=== PATIENT | male | born 1960 | race Hispanic/Latino ===

== ENCOUNTER 2021-09-06 07:18 | Outpatient (CLI) | payer OTHER, SELFPAY ==
--- NOTE | ~2021-09-06 | US_ITS ---
EXAMINATION: US abdomen complete DATE: 09/06/2021 07:54 INDICATION: Right upper quadrant abdominal pain. TECHNIQUE: Multiple grayscale and Doppler ultrasound images of the abdomen were obtained. COMPARISON: None FINDINGS: The visualized portions of the head and body of the pancreas are normal. The liver is keegan l without focal lesion. There is normal flow in main portal vein. The gallbladder is normal in size. No gallstones or sonographic Mcclure sign. Gallbladder wall thickening is noted. The kidneys are keegan l in size. Abdominal aorta is normal in caliber. Inferior vena cava is normal. The spleen is normal i n size. IMPRESSION: 1. Gallbladder wall thickening, which may be seen with chronic liver disease, chronic cholecystitis, or interstitial edema. Reviewed, dictated and finalized at location A. IMPRESSION: 1. Gallbladder wall thickening, which may be seen with chronic liver disease, c hronic cholecystitis, or interstitial edema.
== END 2021-09-06 07:19 | disposition home or self-care (01) ==
PROVIDERS: PCP Internal Medicine; Visit Provider Internal Medicine Gastroenterology
DX: R10.11 Right upper quadrant pain (principal)
CPT/HCPCS: 76700

== ENCOUNTER 2022-01-24 07:32 | Outpatient (CLI) | payer MEDICAID, SELFPAY ==
--- NOTE | ~2022-01-24 | NM_ITS ---
EXAMINATION: NM hepatobiliary wo pharm DATE: 01/24/2022 11:03 CDT INDICATION: Right upper quadrant pain COMPARISON: None. TECHNIQUE: 5.1 mCi Tc-99m mebrofenin (Choletec) was administered intravenously. Scintigraphic images of the abdomen were obtained for one hour. At the 1 hour time point, the patient drank 8 oz Ensure, and imaging was continued for 60 minutes. Gallbladder ejection fraction was calculated by the technol ogist. FINDINGS: There is normal clearance of radiotracer from the blood pool. There is homogeneous tracer u ptake by the liver. Activity progresses to the bowel and gallbladder. The gallbladder ejection fract ion is 34%. Note that with this technique, normal GBEF >= 33%. IMPRESSION: 1. Normal hepatobiliary scan. Reviewed, dictated and finalized at location B.
== END 2022-01-24 07:33 | disposition home or self-care (01) ==
LOC: ANHIMG 07:37
PROVIDERS: PCP Internal Medicine; Visit Provider Nurse Practitioner Family
DX: R10.11 Right upper quadrant pain (principal); R93.2 Abnormal findings on diagnostic imaging of liver and biliary tract
CPT/HCPCS: 78226; A9537

== ENCOUNTER 2022-03-04 00:27 | Day surgery (SDC) | payer MEDICAID, SELFPAY ==
[2022-02-21 12:43] VITALS: BMI 26.5
[2022-03-04 11:13] VITALS: BP 156/85; PULSE 80; RESP 18; TEMP 35.9; O2SAT 100
[2022-03-04] MEDS: LACTATED RINGERS 1,000 ML 150 ML IV CONT (11:27)
--- NOTE | 2022-03-04 11:32 | PM.HPGS ---
History of Present Illness History of Present Illness Consent: Risks, benefits, and alternatives have been discussed and questions answered. Patient agrees to proceed with procedure. Chief complaint: neoplasm,hx colon polyps,hemorrhoids, RQUP, GERD Narrative: Zi Alcantar is a 61 year old male here for egd, colonoscopy and irc. He had colon polyp 5 years ago, also gerd- last time ? H pylori but unsure, also hemorrhoids- interested on treatment Review of Systems Constitutional: Constitutional: Denies headache(s) and Denies weakness Eyes: Eyes: Denies blurry vision ENT: Reports Normal hearing present, Denies headache(s) and Denies neck pain Cardiovascular: Cardiovascular: Denies chest pain and Denies dyspnea Respiratory: Respiratory: Denies dyspnea Gastrointestinal: Gastrointestinal: Reports no additional gastrointestinal complaints Genitourinary: Genitourinary: Denies dysuria Musculoskeletal: Musculoskeletal: Denies neck pain Integumentary/Breasts: Skin/Breast: Denies dry skin Neurologic: Reports Normal hearing present, Denies headache(s) and Denies weakness Psychiatric: Psychiatric: Denies anxiety Endocrine: Endocrine: Denies change in body appearance Hematologic/Lymphatic: Hematologic/Lymphatic: Denies easy bleeding Allergic/Immunologic: Allergic/Immunologic: Denies urticaria PMFSH Past Medical History Medical History (Updated 01/13/22 @ 09:58 by Michael Hu MD) Abnormal gallbladder ultrasound Anxiety Colon polyp Dysphagia GERD (gastroesophageal reflux disease) Hemorrhoid Hypertension RUQ pain Ulcer Social History Social History Smoking status: Former smoker Tobacco type: cigarettes Alcohol intake: never Substance use: never Substance use type: does not use Living arrangements: with family Spiritual care concerns: No Meds Home Medications and Allergies Home Medications Medication Instructions Recorded Confirmed Type lisinopril 20 mg tablet 20 mg PO DAILY 08/26/21 02/21/22 History pantoprazole 40 mg tablet,delayed 40 mg PO QAM 08/26/21 02/21/22 History release sertraline 100 mg tablet 100 mg PO DAILY 08/26/21 02/21/22 History trazodone 50 mg tablet 50 mg PO QHS PRN Sleep 08/26/21 02/21/22 History sucralfate 1 gram tablet 1 g PO TID #90 tabs 01/13/22 02/21/22 Rx Allergies Allergy/AdvReac Type Severity Reaction Status Date / Time No Known Allergies Allergy Verified 03/04/22 11:11 Vital Signs Vital Signs - 24 hr 03/04/22 11:13 Temperature 96.7 F L Pulse Rate 80 Respiratory Rate 18 Blood Pressure 156/85 H Pulse Oximetry 100 Oxygen Delivery Room Air Exam Const: General: comfortable and no acute distress HENMT: General nose exam: Normal nares present Eyes: General: appearance normal, both eyes and all related structures Neck: Neck: no JVD Resp: Auscultation: clear to auscultation bilaterally Cardio: Rate: regular rate Rhythm: regular rhythm GI: Inspection: non-distended GI Palp: Yes Soft to palpation Skin: General skin exam: normal color Neuro: General: gait normal Speech: normal speech Extrem: General: normal to inspection Psych: Mental Status: mental status grossly normal Assessment and Plan Assessment and plan (1) Colon polyp: Code(s): K63.5 - Polyp of colon Status: Acute Assessment and Plan: colonoscopy (2) Hemorrhoid: Code(s): K64.9 - Unspecified hemorrhoids Status: Acute Assessment and Plan: IRC of internal hemorrhoids (3) GERD (gastroesophageal reflux disease): Code(s): K21.9 - Gastro-esophageal reflux disease without esophagitis Status: Acute Assessment and Plan: egd with bx on ppi
--- NOTE | 2022-03-04 11:43 | P.PNAN_ITS ---
Anes - Initial Pre Proc Eval Procedure: Operation Date: 03/04/22 12:30 Proposed Procedures p Esophagogastroduodenoscopy & Screening Colonoscopy - Michael Barry MD [facility] Hemorrhoid Treatment - Michael Hu MD Date/Time: 03/04/22 11:43 Surgeon: Michael Hu MD Pre Op Diagnosis: neoplasm,hx colon polyps,hemorrhoids, RQUP, GERD Patient Data Age: 61 Gender: M Height: 1.78 m Weight: 86.3 kg Last Vital Signs Temp 96.7 F L 03/04/22 11:13 Pulse 80 03/04/22 11:13 Resp 18 03/04/22 11:13 BP 156/85 H 03/04/22 11:13 Pulse Ox 100 03/04/22 11:13 O2 Del Method Room Air 03/04/22 11:13 Allergies Allergy/AdvReac Type Severity Reaction Status Date / Time No Known Allergies Allergy Verified 03/04/22 11:11 Home Medications Medication Instructions Recorded Confirmed Type lisinopril 20 mg tablet 20 mg PO DAILY 08/26/21 02/21/22 History pantoprazole 40 mg tablet,delayed 40 mg PO QAM 08/26/21 02/21/22 History release sertraline 100 mg tablet 100 mg PO DAILY 08/26/21 02/21/22 History trazodone 50 mg tablet 50 mg PO QHS PRN Sleep 08/26/21 02/21/22 History sucralfate 1 gram tablet 1 g PO TID #90 tabs 01/13/22 02/21/22 Rx Patient hx anesthesia problems: none Family hx anesthesia problems: none Results Review: All pre-operative results and documents have been reviewed as part of the pre- operative evaluation. [facility] Past Medical History Medical History (Updated 01/13/22 @ 09:58 by Michael Hu MD) Abnormal gallbladder ultrasound Anxiety Colon polyp Dysphagia GERD (gastroesophageal reflux disease) Hemorrhoid Hypertension RUQ pain Ulcer Social History Social History Smoking status: Former smoker Tobacco type: cigarettes Alcohol intake: never Substance use: never Substance use type: does not use Living arrangements: with family Spiritual care concerns: No Anes - Eval Final PreProcedure Day of Procedure 03/04/22 11:43 Patient weight: normal Heart: regular rate and rhythm Lungs: clear to auscultation Airway: Mallampati scale class II Neurological: alert and oriented Last oral intake: >/= 8 hours ASA classification: II Emergent: no Anesthetic plan: proceed Anesthesia type and monitoring: general GIVS and standard monitoring Results Review: All pre-operative results and documents have been reviewed as part of the pre- operative evaluation. Informed Consent: The patient's anesthetic plan and its attendant risks and benefits were discussed with the patient/family/POA. Questions were solicited and answers provided to the satisfaction of the patient/family/POA.
--- NOTE | 2022-03-04 11:48 | SUR.OPER ---
EGD: [id number] COLON: [id number]
[2022-03-04 12:01] VITALS: BP 91/58; PULSE 80; RESP 14; O2SAT 100
--- NOTE | 2022-03-04 12:01 | W.PM.PROC2 ---
Procedure Note - Detailed Date of Procedure 03/04/22 Pre-op Diagnosis neoplasm,hx colon polyps,hemorrhoids, RQUP, GERD Post-op Diagnosis Same Procedure Performed IRC of internal hemorrhoids Surgeon Michael Hu MD Description of Procedure rectal exam showed grade II internal hemorrhoids, no bleeding, no fissure. Then anoscope was introduced and IRC probe advanced, hemorrhoids treated x6 1.5 seconds each time.
[2022-03-04 12:11] VITALS: BP 121/76; PULSE 78; RESP 20; O2SAT 100
[2022-03-04 12:21] VITALS: BP 116/81; PULSE 78; RESP 20; O2SAT 100
== END 2022-03-04 12:35 | disposition home or self-care (01) ==
PROVIDERS: PCP Internal Medicine; Visit Provider Internal Medicine Gastroenterology
PROC: 0DJ08ZZ Inspection of Upper Intestinal Tract, Via Natural or Artificial Opening Endoscopic (ICD-10-PCS; CPT 43235; principal; 2022-03-04 12:30)
PROC: (CPT 46930; 2022-03-04 12:30)
DX: Z12.11 Encounter for screening for malignant neoplasm of colon (principal); Z86.010 Personal history of colon polyps; K64.1 Second degree hemorrhoids; K29.50 Unspecified chronic gastritis without bleeding; K21.9 Gastro-esophageal reflux disease without esophagitis; R10.11 Right upper quadrant pain; F41.9 Anxiety disorder, unspecified; I10 Essential (primary) hypertension; Z87.891 Personal history of nicotine dependence; R13.10 Dysphagia, unspecified
CPT/HCPCS: 45378; 43239; 46930; 87081; 88305; J2704; J7120

== ENCOUNTER 2022-05-17 01:16 | Day surgery (SDC) | payer MEDICAID, SELFPAY ==
[2022-05-11 12:32] VITALS: BMI 27.6
--- NOTE | 2022-05-17 13:11 | PM.HPGS ---
History of Present Illness History of Present Illness Consent: Risks, benefits, and alternatives have been discussed and questions answered. Patient agrees to proceed with procedure. Chief complaint: hemorrhoids Narrative: Zi Alcantar is a 61 year old male with hemorrhoids treated with irc previously, lately with discomfort again Review of Systems Constitutional: Constitutional: Denies headache(s) and Denies weakness Eyes: Eyes: Denies blurry vision ENT: Reports Normal hearing present, Denies headache(s) and Denies neck pain Cardiovascular: Cardiovascular: Denies chest pain and Denies dyspnea Respiratory: Respiratory: Denies dyspnea Gastrointestinal: Gastrointestinal: Reports no additional gastrointestinal complaints Genitourinary: Genitourinary: Denies dysuria Musculoskeletal: Musculoskeletal: Denies neck pain Integumentary/Breasts: Skin/Breast: Denies dry skin Neurologic: Reports Normal hearing present, Denies headache(s) and Denies weakness Psychiatric: Psychiatric: Denies anxiety Endocrine: Endocrine: Denies change in body appearance Hematologic/Lymphatic: Hematologic/Lymphatic: Denies easy bleeding Allergic/Immunologic: Allergic/Immunologic: Denies urticaria PMF Past Medical History Medical History Abnormal gallbladder ultrasound Anxiety Colon polyp Dysphagia GERD (gastroesophageal reflux disease) Hemorrhoid Hypertension RUQ pain Ulcer Social History Social History Years smoked: 5 Smoking status: Former smoker Tobacco type: cigarettes Alcohol intake: never Substance use: never Substance use type: does not use Living arrangements: with family Spiritual care concerns: No Meds Home Medications and Allergies Home Medications Medication Instructions Recorded Confirmed Type lisinopril 20 mg tablet 20 mg PO DAILY 08/26/21 05/11/22 History pantoprazole 40 mg tablet,delayed 40 mg PO QAM 08/26/21 05/11/22 History release sertraline 100 mg tablet 100 mg PO DAILY 08/26/21 05/11/22 History trazodone 50 mg tablet 50 mg PO QHS PRN Sleep 08/26/21 05/11/22 History propranolol 20 mg tablet 20 mg PO TID 05/11/22 05/11/22 History Allergies Allergy/AdvReac Type Severity Reaction Status Date / Time No Known Allergies Allergy Verified 05/11/22 12:34 Exam Const: General: comfortable and no acute distress HENMT: Face/Nose/Sinus: Normal nares present Eyes: General: appearance normal, both eyes and all related structures Neck: Neck: no JVD Resp: Auscultation: clear to auscultation bilaterally Cardio: Rate: regular rate Rhythm: regular rhythm GI: Inspection: non-distended GI Palp: Yes Soft to palpation Skin: General skin exam: normal color Neuro: General: gait normal Speech: normal speech Extrem: General: normal to inspection Psych: Mental Status: mental status grossly normal Assessment and Plan Assessment and plan (1) Hemorrhoid: Code(s): K64.9 - Unspecified hemorrhoids Status: Acute Assessment and Plan: will treat again with irc
--- NOTE | 2022-05-17 13:12 | W.PM.PROC2 ---
Procedure Note - Detailed Date of Procedure 05/17/22 Pre-op Diagnosis hemorrhoids Post-op Diagnosis Same Procedure Performed irc of internal hemorrhoids Surgeon Michael Hu MD Anesthesia None Description of Procedure I introduced and found small internal hemorrhoid, no fissure, no bleeding. Then advanced IRC probe and hemorrhoid treated for 1.5 seconds x5, no complications
== END 2022-05-17 13:15 | disposition home or self-care (01) ==
PROVIDERS: PCP Internal Medicine; Visit Provider Internal Medicine Gastroenterology
PROC: (CPT 46930; principal; 2022-05-17 13:15)
DX: K64.8 Other hemorrhoids (principal); I10 Essential (primary) hypertension; K21.9 Gastro-esophageal reflux disease without esophagitis; F41.9 Anxiety disorder, unspecified
CPT/HCPCS: 46930

== ENCOUNTER 2022-09-27 09:34 | Outpatient (CLI) | payer MEDICAID, SELFPAY ==
--- NOTE | ~2022-09-27 | CT_ITS ---
CT of the Abdomen and Pelvis: Indication: Abdominal pain Technique: 2.5 mm axial scans were obtained through the abdomen and pelvis following intravenous adm inistration of 100 cc of Omnipaque 350. Dose reduction technique was used on this scan by utilizing a utomated exposure control and iterative reconstruction technique. The dose-length product (DLP) was 4 12.03 mGy-cm. Findings: Scans through the lung bases are unremarkable. The liver, spleen, pancreas, gallbladder, adrenals and kidneys are within normal limits. No evidence of aortic aneurysm. No lymphadenopathy. No bowel obstruction or bowel wall thickening. There is no evidence to suggest acute appendicitis. Images through the pelvis were performed. Urinary bladder unremarkable. Prostate gland is mildly enla rged. No ascites. Impression: No significant abnormalities seen. Reviewed, dictated and finalized at [facility]. Impression: No significant abnormalities seen.
[2022-09-27 09:53] LABS: Estimated Glomerular Filt Rate > 60
== END 2022-09-27 09:35 | disposition home or self-care (01) ==
PROVIDERS: PCP Physician Assistant; Visit Provider Surgery
DX: R10.11 Right upper quadrant pain (principal)
CPT/HCPCS: 74177; Q9967

== ENCOUNTER 2023-01-23 12:46 | Outpatient (CLI) | payer MEDICAID, SELFPAY ==
--- NOTE | 2023-01-23 13:59 | ECG_ITS ---
Measurements Intervals [place] Rate: 61 P: 53 OR: 184 QRS: 26 QRSD: 88 T: 42 QT: 387 QTc: 392 Interpretive Statements SINUS RHYTHM CANNOT RULE OUT PREVIOUS sEPTAL MYOCARDIAL INFARCTION NO PREVIOUS ECG AVAILABLE FOR COMPARISON Electronically Signed On 01-23-2023 17:15:03 CDT by Reggie Murray M.D.
[2023-01-23 14:33] LABS: Alanine Aminotransferase 36 U/L (6-50); Albumin Level 4.4 g/dL (3.5-5.1); Alkaline Phosphatase 66 U/L (38-126); Amylase 98 U/L (30-110); Aspartate Amino Transferase 35 U/L (17-59); Bilirubin,Total 0.3 mg/dL (0.2-1.3); Lipase 88 U/L (23-300)
== END 2023-01-23 12:47 | disposition home or self-care (01) ==
LOC: ANHSURGERY 12:51
PROVIDERS: PCP Physician Assistant; Visit Provider Surgery
DX: K81.1 Chronic cholecystitis (principal); I10 Essential (primary) hypertension; Z01.818 Encounter for other preprocedural examination
CPT/HCPCS: 36415; 80076; 82150; 83690; 86850; 86900; 86901; 93005

== ENCOUNTER 2023-01-24 04:20 | Day surgery (SDC) | payer MEDICAID, SELFPAY ==
--- NOTE | 2023-01-23 11:50 | PC.NURSE ---
Report to the Outpatient Waiting Room, entrance under the green pavilion located off [facility], at time _1200_ on date _01/24/23_. Planned Procedure Time: _2PM_. Time changes happen often and if your time is changed the preop area will call you the afternoon before. - You and your visitor will be asked to self-screen and do not enter if you have any COVID symptoms. - A mask is optional within the hospital at this time. Patients may have clear liquids (water, carbonated beverages, clear teas, apple juice) until 3 hours prior to surgery (1100 AM) with a maximum of 20 ounces. - No food from midnight until time of surgery Take the following medications with a SIP of water the morning of surgery: _BUSPIRONE, PROPRANOLOL, SERTRALINE_ DO NOT STOP ANY OF YOUR OTHER PRESCRIPTION MEDICATIONS PRIOR TO SURGERY ?EXCEPT THE FOLLOWING Medications to discontinue per physician ____NONE , Date to take last dose Please no make-up, nail kazakh, hairspray, perfume, deodorant, or body powder the day of surgery. No jewelry (including any body piercings) or valuables the day of surgery, leave them at home. Please take a shower or bath the night before, or the morning of, surgery with an antibacterial soap. Wear comfortable, loose fitting clothing. - Jewelry must be removed prior to entering the operating room. Rings and piercings that are not removed may be cut off. - The hospital will not accept responsibility for valuables. - Please leave all valuables, including medications, at home the day of surgery. If you are going home after surgery, a licensed forklift driver must drive you home. - NO public transportation without another adult if you receive anesthesia. - We recommend that an adult stay with you for 24 hours following discharge. - We also recommend that you do not drive, make important decision, drink alcoholic beverages, or take any drugs that were not prescribed by your health care provider for at least 24 hours after your discharge time. Follow any additional instructions given to you from your surgeon. HIBICL[facility] SHOWER AM OF SURGERY If you or anyone in your household have experienced Covid symptoms in the past week, please notify your surgeon or the nurse liaison at the phone number below for possible testing. Instructions given to _PATIENT & SON (AGA)_and asked if any additional questions and then verbalized understanding. Patient advised to call surgeon office or pre surgery nurse liaison [phone] if any additional questions.
[2023-01-23 13:02] VITALS: BP 130/62; PULSE 62; RESP 20; TEMP 37.2; O2SAT 100; BMI 28.7
[2023-01-24] VITALS (9 sets, daily range): BP systolic 133–177; BP diastolic 65–90; PULSE 50–85; RESP 16–18; TEMP 36.1–36.7; O2SAT 97–100; BMI 25.2
[2023-01-24] MEDS: LACTATED RINGERS 1,000 ML 30 ML IV CONT ×2 (12:50→14:11)
--- NOTE | 2023-01-24 12:50 | PM.IMHP ---
H&P: HPI History of Present Illness Date/Time: 01/24/23 12:50 Chief Complaint: Chronic cholecystitis, biliary dyskinesia Narrative: This is a 62-year-old man who presents for laparoscopic cholecystectomy. His previous imaging showed evidence of chronic cholecystitis without cholelithiasis. HIDA scan showed slightly decreased gallbladder ejection fraction. He reports no changes since last seen in the office. Review of Systems Review of Systems: All systems reviewed & are unremarkable except as noted in HPI and below Constitutional: Constitutional: Denies chills, Denies fever(s), Denies headache(s) and Denies weight loss Eyes: Eyes: Denies change in vision ENT: Denies dizziness, Denies headache(s), Denies neck mass and Denies throat swelling Cardiovascular: Cardiovascular: Denies chest pain, Denies lightheadedness and Denies dyspnea Respiratory: Respiratory: Denies cough, Denies dyspnea and Denies wheezing Gastrointestinal: Gastrointestinal: Denies abdominal pain, Denies change in bowel habits, Denies nausea and Denies vomiting Genitourinary: Genitourinary: Denies hematuria and Denies dysuria Musculoskeletal: Musculoskeletal: Reports as per HPI Integumentary/Breasts: Skin/Breast: Reports as per HPI Neurologic: Denies dizziness and Denies headache(s) Allergic/Immunologic: Allergic/Immunologic: Denies throat swelling and Denies wheezing PMFSH Past Medical History Medical History Abnormal gallbladder ultrasound Anxiety Colon polyp Dysphagia GERD (gastroesophageal reflux disease) Hemorrhoid Hypertension RUQ pain Ulcer Surgical History Surgical History H/O foot surgery H/O umbilical hernia repair Family History Family History Father Heart disease Mother Lung cancer Unknown Hypertension Cancer Kidney disease Social History Social History Social History: denies caffeine use Smoking packs per day: 1 Smoking cigarettes per day: 20.0 Years smoked: 2 Smoking pack-years: 2.00 Smoking status: Former smoker Tobacco type: cigarettes Second hand tobacco smoke exposure: No Smoking end date: 06/12/19 Alcohol intake: never Substance use: never Substance use type: does not use Living arrangements: with family Additional living arrangements comments: Spiritual care concerns: No Meds Home Medications and Allergies Home Medications Medication Instructions Recorded Confirmed Type lisinopril 20 mg tablet 20 mg PO DAILY 08/26/21 01/23/23 History pantoprazole 40 mg tablet,delayed 40 mg PO QAM 08/26/21 01/23/23 History release sertraline 100 mg tablet 100 mg PO DAILY 08/26/21 01/23/23 History trazodone 50 mg tablet 50 mg PO QHS PRN Sleep 08/26/21 01/23/23 History propranolol 20 mg tablet 20 mg PO TID 05/11/22 01/23/23 History buspirone 7.5 mg tablet 7.5 mg BID 01/23/23 01/23/23 History Allergies Allergy/AdvReac Type Severity Reaction Status Date / Time No Known Allergies Allergy Verified 01/23/23 12:58 Vital Signs Vital Signs - 24 hr 01/23/23 13:02 Temperature 37.2 C Pulse Rate 62 Respiratory Rate 20 Blood Pressure 130/62 Pulse Oximetry 100 Oxygen Delivery Room Air Exam Const: General: no acute distress and alert Orientation/consciousness: patient oriented x3 HENMT: Head: normocephalic and atraumatic Ears: hearing grossly normal bilaterally Face/Nose/Sinus: Normal nares present Mouth: Yes Normal oral and palatal mucosa present Eyes: Periorbital: periorbital findings normal Sclera: sclerae normal EOM: EOMs intact bilaterally Neck: Neck: normal visual inspection, no lymphadenopathy and trachea midline Chest: Chest palpation & inspection: normal inspection of the chest Resp: Effort & Inspection: normal
--- NOTE | 2023-01-24 12:53 | WPDHPUPDATE1 ---
History and Physical Update Update Date/Time: 01/24/23 12:53 History and Physical has been reviewed, including an updated exam of the patient. There are NO changes in the patient's condition. Risks, benefits, and alternatives have been discussed and questions answered. Patient agrees to proceed with procedure.
--- NOTE | 2023-01-24 12:54 | WPDANESEPPF ---
Anes - Initial Pre Proc Eval Procedure: Operation Date: 01/24/23 14:00 Proposed Procedures p Laparoscopic Cholecystectomy - Sebastien Hdz DO Date/Time: 01/24/23 12:54 Surgeon: Sebastien Hdz DO Pre Op Diagnosis: chronic cholecystitis Patient Data Age: 62 Gender: M Height: 1.78 m Weight: 90.9 kg Last Vital Signs Temp 37.2 C 01/23/23 13:02 Pulse 62 01/23/23 13:02 Resp 20 01/23/23 13:02 BP 130/62 01/23/23 13:02 Pulse Ox 100 01/23/23 13:02 O2 Del Method Room Air 01/23/23 13:02 Allergies Allergy/AdvReac Type Severity Reaction Status Date / Time No Known Allergies Allergy Verified 01/23/23 12:58 Home Medications Medication Instructions Recorded Confirmed Type lisinopril 20 mg tablet 20 mg PO DAILY 08/26/21 01/23/23 History pantoprazole 40 mg tablet,delayed 40 mg PO QAM 08/26/21 01/23/23 History release sertraline 100 mg tablet 100 mg PO DAILY 08/26/21 01/23/23 History trazodone 50 mg tablet 50 mg PO QHS PRN Sleep 08/26/21 01/23/23 History propranolol 20 mg tablet 20 mg PO TID 05/11/22 01/23/23 History buspirone 7.5 mg tablet 7.5 mg BID 01/23/23 01/23/23 History Patient hx anesthesia problems: none Family hx anesthesia problems: none Results Review: All pre-operative results and documents have been reviewed as part of the pre-operative evaluation. [facility] Past Medical History Medical History Abnormal gallbladder ultrasound Anxiety Colon polyp Dysphagia GERD (gastroesophageal reflux disease) Hemorrhoid Hypertension RUQ pain Ulcer Surgical History Surgical History H/O foot surgery H/O umbilical hernia repair Family History Family History Father Heart disease Mother Lung cancer Unknown Hypertension Cancer Kidney disease Social History Social History Social History: denies caffeine use Smoking packs per day: 1 Smoking cigarettes per day: 20.0 Years smoked: 2 Smoking pack-years: 2.00 Smoking status: Former smoker Tobacco type: cigarettes Second hand tobacco smoke exposure: No Smoking end date: 06/12/19 Alcohol intake: never Substance use: never Substance use type: does not use Living arrangements: with family Additional living arrangements comments: Spiritual care concerns: No Anes - Eval Final PreProcedure Day of Procedure 01/24/23 12:54 Patient weight: overweight Heart: regular rate and rhythm Lungs: clear to auscultation Airway: Mallampati scale class II Neurological: alert and oriented Last oral intake: >/= 8 hours ASA classification: III Emergent: no Anesthetic plan: proceed Anesthesia type and monitoring: general ETT and standard monitoring Results Review: All pre-operative results and documents have been reviewed as part of the pre-operative evaluation. Informed Consent: The patient's anesthetic plan and its attendant risks and benefits were discussed with the patient/family/POA. Questions were solicited and answers provided to the satisfaction of the patient/family/POA.
[2023-01-24] MEDS: ACETAMINOPHEN 500 MG TABLET 1000 MG PO (13:06)
[2023-01-24] MEDS: KETOROLAC 15 MG/ML VIAL (*BKC) IV PUSH (13:06)
[2023-01-24] MEDS: ceFAZolin 2 GM/D5W 50 ML 2 GM/50 ML BAG IVPB (13:12)
[2023-01-24] MEDS: BUPIVACAINE/EPINEPHRINE 0.25% 10 ML VIAL 30 ML INFILTRATE (13:44)
--- NOTE | 2023-01-24 14:11 | W.PM.PROC2 ---
Procedure Note - Detailed Date of Procedure 01/24/23 Pre-op Diagnosis chronic cholecystitis Post-op Diagnosis Same Procedure Performed Laparoscopic Cholecystectomy Surgeon Sebastien Hdz, DO Anesthesia General and Local (0.5% bupivacaine) Indications This is a 62-year-old man who has been experiencing some intermittent upper abdominal pain for the past year. He was seen initially about 9 months ago and workup at that time had shown chronic cholecystitis on ultrasound and a slightly decreased gallbladder ejection fraction. He then followed up about 4 months ago was still having the same symptoms. Discussions were made with the patient about treatment options and decision was made to proceed with laparoscopic cholecystectomy, possible open. Findings Laparoscopic cholecystectomy was performed. I initially placed a port in the left upper quadrant at snow's point to safely enter into the abdominal cavity away from where his prior umbilical hernia repair was performed. The patient did have multiple adhesions involving omentum up to the abdominal wall in the periumbilical region. Another 5 mm port was placed in the left lower abdomen to allow for some adhesiolysis. I then was able to visualize the abdominal wall and placed the remainder ports for the laparoscopic cholecystectomy. The patient did have some chronic gallbladder wall thickening. The cystic duct appeared normal in size. No other significant abnormalities were noted. The gallbladder was removed and sent to the lab for pathology. Description of Procedure Procedure as well as risks, benefits, and alternatives were discussed with patient. Written consent was obtained and placed in chart prior to procedure. The patient was brought back to surgical suite. Patient was placed in supine position on operating table. Time-out was done to confirm patient and procedure. Patient was then intubated by the anesthesia department. Abdomen was prepped and draped in sterile fashion using chlorhexidine prep. 0.5% bupivacaine with epinephrine was infiltrated at each site of incision. A 5 millimeter incision was made in the left subcostal region, and a 5 millimeter Optiview trocar was advanced through the abdominal layers under direct visualization. Once inside the abdominal cavity, carbon dioxide was insufflated to create a pneumoperitoneum. The camera was inserted and the abdomen was inspected. Another 5 mm incision was made in the left lower abdomen and a 5 mm port was placed under direct visualization. The omental adhesions up to the periumbilical region were carefully taken down using scissors with electrocautery. I was then able to adequately visualize the supraumbilical region. A 5 mm incision was made in the supraumbilical region and a 5 mm trocar was inserted under direct visualization. The patient was placed in reverse Trendelenburg position and rotated slightly to the left. An 11 millimeter incision was made in the subxiphoid region, and an 11 millimeter trocar was inserted under direct visualization. Two 5 millimeter incisions were made in the right upper quadrant, and two 5 millimeter trocars were inserted under direct visualization. The gallbladder was identified and grasped at the fundus and retracted superiorly. It was then grasped at the infundibulum retracted laterally. Careful dissection around the neck of the gallbladder was performed using blunt dissection with a [place] grasper and hook electrocautery. The cystic duct was identified, and a window was created behind it. The cystic artery was also identified and a window was created behind it. The critical view of safety was identified, visualizing the cystic duct running directly into the neck of the gallbladder, and the cystic artery running directly into the wall of the gallbladder. A 5 millimeter clip latin dance instructor was then used to place 2 clips proximally and 1 clip distally on both the cystic duct and cystic artery. They were then b
[2023-01-24] MEDS: fentaNYL CITRATE INJ (*CRX) 100 MCG/2 ML VIAL 25 MCG IV PUSH ×6 (14:38→14:58)
[2023-01-24] MEDS: oxyCODONE HCL (*CRX) 5 MG TAB IR PO (15:29)
== END 2023-01-24 16:26 | disposition home or self-care (01) ==
PROVIDERS: PCP Physician Assistant; Visit Provider Surgery
PROC: 0FT44ZZ Resection of Gallbladder, Percutaneous Endoscopic Approach (ICD-10-PCS; CPT 47562; principal; 2023-01-24 14:00)
DX: K81.1 Chronic cholecystitis (principal); I10 Essential (primary) hypertension; F41.9 Anxiety disorder, unspecified; K21.9 Gastro-esophageal reflux disease without esophagitis; Z87.891 Personal history of nicotine dependence
CPT/HCPCS: 47562; 36415; 80076; 82150; 83690; 86850; 86900; 86901; 88304; 93005; A9270; J0690; J1100; J1885; J2250; J2405; J2704; J3010; J7030; J7120

== ENCOUNTER 2023-08-11 11:16 | Emergency (ER) | payer MEDICAID, SELFPAY ==
--- NOTE | ~2023-08-11 | XR_ITS ---
EXAMINATION: XR chest 2V DATE: 08/11/2023 11:56 INDICATION: Decreased breath sounds in the lower lobes. COVID-19 positive. TECHNIQUE: Frontal and lateral views of the chest were obtained on 3 radiographs. COMPARISON: CT abdomen and pelvis 09/27/2022 FINDINGS: There is no pneumonia, pleural effusion, or pneumothorax. The heart size is normal. IMPRESSION: 1. No acute cardiopulmonary disease. Reviewed, dictated and finalized at location A. FOUNDER AND DIRECTOR
[2023-08-11 11:27] VITALS: BP 127/70; PULSE 86; RESP 16; TEMP 36.4; O2SAT 100
--- NOTE | 2023-08-11 12:08 | ED.URI ---
HPI - URI/Sore Throat General Chief Complaint: Upper Respiratory Infection Stated Complaint: COLD SYMPTOMS Source: patient, family and RN notes reviewed Mode of arrival: ambulatory Limitations: language barrier ( striper service offered. Patient declined. Preferred that son at bedside interpret.) History of Present Illness HPI Narrative: 62-year-old male presents to [facility] with complaint of sore throat, headache, myalgias, subjective fever, nonproductive cough for 3 days. Patient also endorsing bilateral ear pressure and dizziness. Patient denies gait changes or syncopal episodes. Patient endorses history of hypertension and anxiety. Patient denies allergies, chest pain or shortness of breath. patient has treated at home with saline nasal spray and Tylenol which has helped minimally. Patient able to tolerate fluids by mouth. Related Data Home Medications Medication Instructions Recorded Confirmed lisinopril 20 mg tablet 20 mg PO DAILY 08/26/21 02/10/23 pantoprazole 40 mg tablet,delayed 40 mg PO QAM 08/26/21 02/10/23 release sertraline 100 mg tablet 100 mg PO DAILY 08/26/21 02/10/23 trazodone 50 mg tablet 50 mg PO QHS PRN Sleep 08/26/21 02/10/23 propranolol 20 mg tablet 20 mg PO TID 05/11/22 02/10/23 buspirone 7.5 mg tablet 7.5 mg BID 01/23/23 02/10/23 Allergies Allergy/AdvReac Type Severity Reaction Status Date / Time No Known Allergies Allergy Verified 02/09/23 15:21 Review of Systems Review of Systems: All systems reviewed & are unremarkable except as noted in HPI and below Constitutional: Constitutional: Reports fever(s) (subjective) and Reports headache(s) Eyes: Eyes: Reports no additional eye complaints ENT: Reports dizziness, Reports headache(s), Reports nasal congestion, Denies neck pain, Reports sinus pressure, Reports sore throat and Denies throat swelling Cardiovascular: Cardiovascular: Reports no additional cardiovascular complaints, Denies chest pain and Denies dyspnea Respiratory: Respiratory: Reports no additional respiratory complaints, Reports cough ( Nonproductive) and Denies dyspnea Musculoskeletal: Musculoskeletal: Denies abnormal gait and Reports myalgias Neurologic: Reports system reviewed and no additional complaints, except as documented Psychiatric: Psychiatric: Reports no additional psychiatric complaints PMFSH Past Medical History Medical History (Updated 03/01/24 @ 12:14 by Cait Hector APRN) Abnormal gallbladder ultrasound Anxiety Colon polyp Dysphagia GERD (gastroesophageal reflux disease) Hemorrhoid Hypertension RUQ pain Ulcer Surgical History Surgical History (Updated 02/09/23 @ 15:23 by Roseanne Motley MA) H/O foot surgery H/O umbilical hernia repair Hx laparoscopic cholecystectomy on 01/24/23 [facility] Family History Family History Father Heart disease Mother Lung cancer Unknown Hypertension Cancer Kidney disease Social History Social History Social History: denies caffeine use Smoking packs per day: 1 Smoking cigarettes per day: 20.0 Years smoked: 2 Smoking pack-years: 2.00 Smoking status: Former smoker Tobacco type: cigarettes Second hand tobacco smoke exposure: No Smoking end date: 06/12/19 Alcohol intake: never Substance use: never Substance use type: does not use Living arrangements: with family Additional living arrangements comments: Spiritual care concerns: No Comments At the time of my signature, I reviewed and agree with the nursing past medical, surgical, social, and family history. There is no relevant family history pertinent to the patient complaint. Exam Const: General: cooperative, healthy appearing, comfortable, no acute distress, alert and well nourished Nutritional Appearance: well nourished Orientation/consciousness: patient oriented x3 Limita
== END 2023-08-11 12:24 | disposition home or self-care (01) ==
PROVIDERS: Emergency Provider Nurse Practitioner Family; PCP Physician Assistant
DX: U07.1 COVID-19 (principal); Z87.891 Personal history of nicotine dependence; K21.9 Gastro-esophageal reflux disease without esophagitis; I10 Essential (primary) hypertension; F41.9 Anxiety disorder, unspecified
CPT/HCPCS: 71046; 87426; 87804; 99213; G0463